=== PATIENT | female | born 1945 | race Caucasian/White ===

== ENCOUNTER → 2019-01-13 13:07 | Outpatient (ROUT) | payer MEDICARE, OTHER, SELFPAY ==
[2019-01-13 13:24] LABS: Crystals Body Fluid - IN-HOUSE NONE Present
== END ==
PROVIDERS: Family Provider Family Medicine; PCP Family Medicine; Visit Provider Orthopaedic Surgery
DX: M17.12 Unilateral primary osteoarthritis, left knee (principal); Z96.652 Presence of left artificial knee joint
CPT/HCPCS: 89060

== ENCOUNTER → 2019-12-14 10:54 | Outpatient (CLI) | payer MEDICARE, OTHER, SELFPAY ==
[2019-12-14 11:34] LABS: Bacteria Urine None Seen; RBC Urine None Seen (0-5/HPF); WBC Urine None Seen (0-5/HPF)
[2019-12-14 12:28] LABS: Add Manual Diff / Slide Review NO; Basophils Absolute Auto 0 /uL (0-100); Basophils Percent Auto 0.6 % (0-2); Eosinophils Absolute Auto 100 /uL (0-450); Eosinophils Percent Auto 1.6 % (2-4); Hemoglobin 14.8 g/dL (12.0-16.0); Lymphocytes Absolute Auto 1400 /uL (1100-4500); Lymphocytes Percent Auto 18.4 % (25-40); Mean Corpuscular HGB Conc 33.6 % (30-36); Mean Corpuscular Hemoglobin 30.1 PG (26-34); Mean Corpuscular Volume 89.7 fL (80-100); Monocytes Absolute Auto 500 /uL (0-900); Monocytes Percent Auto 6.6 % (3-14); Neutrophils Absolute Auto 5600 /uL (1500-7000); Neutrophils Percent Auto 72.8 % (50-75); Platelet Count 221 X10^3/uL (150-400); Red Blood Cell Count 4.91 X10^6/uL (4.0-5.2); Red Cell Distribution Width 13.9 % (11.6-14.8); White Blood Cell Count 7.7 X10^3/uL (4.5-11.0)
[2019-12-14 12:42] LABS: Hemoglobin A1C% w Est Avg Glu 5.3 % (4.0-6.0)
[2019-12-14 12:48] LABS: Appearance Urine UA CLEAR; Bilirubin Urine UA NEGATIVE (NEGATIVE); Color Urine UA YELLOW; Glucose Urine UA NEGATIVE (Negative); Ketones Urine UA NEGATIVE (NEGATIVE); Leukocyte Esterase Urine UA NEGATIVE (NEGATIVE); Nitrite Urine UA NEGATIVE (Negative); Occult Blood Urine UA NEGATIVE (Negative); Protein Urine UA NEGATIVE (Negative); Specific Gravity Urine UA <=1.005 (1.000-1.035); Urobilinogen Urine UA 0.2 E.U./dL (0.2); pH Urine UA 6.5 (4.5-8.0)
[2019-12-14 12:53] LABS: BUN Creatinine Ratio 22.9 (6-22); Blood Urea Nitrogen 16 mg/dL (7-17); Calcium 10.2 mg/dL (8.4-10.2); Carbon Dioxide 32 mmol/L (22-32); Chloride 102 mmol/L (98-107); Estimated Glomerular Filt Rate > 60.0 mL/min (>60); Glucose 102 mg/dL (80-110); HEMOLYSIS < 15 (0-50); Potassium 3.9 mmol/L (3.4-5.1); Sodium 138 mmol/L (137-145)
[2019-12-14 12:54] LABS: Squamous Epithelial Cell Urine 0-1 /HPF (0-5/HPF)
[2019-12-14 12:55] LABS: Amorphous Sediment Urine 1+; Culture Indicated Urine Cult Not Indicated
== END ==
PROVIDERS: Family Provider Family Medicine; PCP Family Medicine; Referring Provider Orthopaedic Surgery; Visit Provider Orthopaedic Surgery
DX: Z01.818 Encounter for other preprocedural examination (principal); Z01.812 Encounter for preprocedural laboratory examination; R73.9 Hyperglycemia, unspecified; N39.0 Urinary tract infection, site not specified
CPT/HCPCS: 36415; 80048; 81001; 83036; 85025; 93005

== ENCOUNTER → 2020-01-06 15:28 | Outpatient (CLI) | payer MEDICARE, OTHER, SELFPAY ==
[2020-01-06 16:41] LABS: COVID19 -Nasal RAPID Negative (Negative)
== END ==
PROVIDERS: Family Provider Family Medicine; PCP Family Medicine; Visit Provider Nurse Practitioner
DX: Z11.59 Encounter for screening for other viral diseases (principal)
CPT/HCPCS: 87635

== ENCOUNTER 2020-01-09 06:20 | Inpatient (IN) | payer MEDICARE, OTHER, SELFPAY ==
[2019-12-19 12:57] VITALS: BMI 26.1
[2020-01-09] VITALS (18 sets, daily range): BP systolic 102–169; BP diastolic 58–86; PULSE 60–90; RESP 14–97; TEMP 35.7–36.9; O2SAT 96–100; BMI 26.2
--- NOTE | 2020-01-09 06:00 | DI.RAD.S_ITS ---
PROCEDURE: XR KNEE LT 1TO2V INDICATIONS: post op films TECHNIQUE: A total of 2 view(s) of the knee acquired. COMPARISON: None. FINDINGS: Bones: Patient is status post knee joint arthroplasty. Hardware components are in expected positions. Visualized bony structures are intact. Soft tissues: Overlying postoperative changes are noted. IMPRESSION: Normal alignment after left total knee arthroplasty with a suprapatellar bursal region surgical drain in expected position. Dictated by: Eran Raphael M.D. on 01/09/2020 at 12:21 Approved by: Eran Raphael M.D. on 01/09/2020 at 12:27
[2020-01-09] MEDS: CELECOXIB 200 MG CAPSULE PO (06:43)
[2020-01-09] MEDS: PREGABALIN 75 MG CAPSULE PO (06:43)
[2020-01-09] MEDS: ACETAMINOPHEN 325 MG TABLET 975 MG PO (06:43)
[2020-01-09] MEDS: LACTATED RINGERS 1,000 ML 42 ML IV ×2 (06:44→09:39)
[2020-01-09] MEDS: VANCOMYCIN 1,000 MG/200 ML PIGGYBACK 200 MG IV (06:50)
--- NOTE | 2020-01-09 07:51 | PM.PREOP ---
Pre-operative Note COVID-19 COVID-19 status: Negative Interval Note History & Physical reviewed/Exam performed by Physician: Yes Changes to H&P: No H&P completed within 30 days and has changed as indicated here:: H&P reviewed and updated. hand written on paper copy in chart and scanned in. lungs clear, cor rrr, left knee TTP lateral, healed incision, mild effusion. allergies nickel.
--- NOTE | 2020-01-09 07:54 | P.OP_ITS ---
Operative Date/Time/Diagnoses Date of procedure: 01/09/20 Time of procedure: 07:54 Pre-op diagnosis: left knee failed medial uni, with lateral OA Post-op diagnosis: same Procedure & Clinicians Procedure: revision left total knee Same procedure as scheduled: Yes Indications: The patient has had progressively worsening left knee pain with radiographic changes consistent with lateral compartment arthritis with a history of prior medial compartment arthroplasty. Non-operative management has failed and the patient has requested revision total knee replacement. The risks, benefits and alternatives to surgery were discussed with the patient prior to proceeding. Risks discussed included, but were not limited to, failure to relieve pain, stiffness, infection, nerve damage, deep venous thrombosis, pulmonary embolism, stroke, coma, heart attack, permanent paralysis and , as well as the potential need for eventual revision of the prosthetic. Surgeon: Arelis Back Nurse Esthetician: Kennedy Pantoja Anesthesia Type: General and Spinal Operative Notes Findings: Minimal polyethylene wear, no significant bone loss, full range of motion, good stability Closure Type: primary Specimen(s): none sent Prosthetic devices, grafts, tissues, transplants, or devices: Back and nephew Journey BCS 2 size 4 femur, size 3 tibia, +12 poly, 10 x 100 mm stem, 35 by 7- 1/2 mm patella Applied: drain(s) Estimated Blood Loss (mL): 250 Blood products transfused: none Tourniquet time (min): 98 Procedure in detail: The patient was seen in the pre-operative area, where the patient identified the left knee as the operative site and this was marked with my initials. The patient received pre-operative antibiotics, and was taken to the operating room and placed on the operative table in the supine position. After satisfactory anesthesia, a time checker out was performed. The left leg was encircled with a tourniquet about the proximal thigh, and the leg was prepared from the toes to the tourniquet with ChloroPrep in the usual fashion and draped through sterile drapes. The leg was elevated and exsanguinated with Eschmark bandage and the tourniquet inflated to [250] mmHg pressure. The knee was approached through an approximately 18 cm incision centered over the patella incorporating the previous incision and carried into the knee through a medial parapatellar arthrotomy. A portion of the lateral meniscus was resected. Soft tissue was carefully mobilized around the patella the patella was measured with a caliper. Bone was resected from the patella and the patellar height was reconstituted with up an appropriate sized patellar component. A cover was then placed on the patella. A small amount of additional lateral meniscus was resected. The distal femur was cut at 5?. A [+2] cut was used. The femoral component was left on and the cut was made on the medial side as a marker. Hand tools were used around the component to loosen it from the cement mantle. A culture was sent of synovium, femoral and from under the tibial component. It looked like an appropriate distal femoral cut and the cut was made without difficulty. The tibial component was removed with a TPS and hand tools. Minimal bone loss was observed. An extramedullary guide was used for the tibial cut. 10 mm was resected off the least affected side (lateral).The tibia was prepared. The rotation was assessed. The patient was placed in extension residual lateral meniscus as well as any residual bone was carefully resected. [No] additional tibia was resected. Hemostasis was achieved especially posteriorly. Additional local was injected into the posterior capsule. The extension gap was assessed and additional releases for gap balancing were performed as necessary. It was checked with the gap quality assurance associate. The rotation was assessed and the missing posterior femoral medial side was carefully assessed. The appropriate size femoral guide was placed on the distal femur and finishing cuts were made. There was no evidence of notching. The anterior, posterior and chamfer cuts were then made. The posterior osteophytes and soft tissues were then removed. The posterior capsule was injected with part of a mixture of 60 ml 0.25% Marcaine mixed with 20 ml Exparel for post operative pain control. The femoral component was placed and the notch was finished. The remainder of this mixture was injec víctor into the capsule and subcutaneous tissues during cement curing.l tibial and femoral components were then placed and the knee placed through a range of motion. Range of motion was [0-130], with good stability throughout the range. The trials were then removed, and the tibia was finished. There was good quality bone in the tibia but because of previous unicompartment replacement it was opted to place 100 mm stem. A Reamer was used in preparation for the stem. The bone was prepared with pulsatile lavage, and dried with a sponge. Cement was applied and the final prosthetics placed. Excess cement was removed during and after cement curing. A brief Betadine soak was performed. After confirming there was no extruded cement posteriorly, the final tibial insert was placed. The knee was copiously irrigated and the tourniquet deflated. Hemostasis was obtained with the Bovie cautery. A drain was placed and brought out superolaterally. The capsule was closed with interrupted nonabsorbable suture. The subcutaneous layer was closed with barbed sutures, and the skin with a running 3-0 V-Lock suture and Surgical glue. An Aquacel Ag dressing was applied and the patient was taken to recovery having tolerated the procedure well. Complications: none Post-operative Condition: stable Disposition: Acute Care Plan for aftercare: The patient will be maintained on a standard total knee replacement protocol with weight bearing as tolerated. The patient will receive aspirin and sequential compression devices for DVT prophylaxis. The patient will be discharged home when safe for the home environment.
[2020-01-09] MEDS: CEFAZOLIN 2 GM/100 ML FROZ.PIGGY IV ×2 (07:55→16:44)
--- NOTE | 2020-01-09 08:30 | SUR.OPER ---
Supine on padded OR bed. Pillow under head, arms secured on padded armboards <90 degree abduction. Safety belt across torso. Non-operative leg secured with tape over blanket over lower leg. Operative leg secured in DeMayo/Jey positioner. Foam padded brace at thigh of operative leg.
[2020-01-09] MEDS: BUPIVACAINE 0.25% W/ EPI (PF) 10 ML VIAL 20 ML INJ (08:42)
[2020-01-09] MEDS: BUPIVACAINE LIPOSOME 266 MG/20 ML VIAL INJ (08:43)
[2020-01-09] MEDS: TRANEXAMIC ACID 1,000 MG VIAL 1000 MG INJ ×2 (08:43→10:08)
[2020-01-09] MEDS: OXYCODONE/ACETAMINOPHEN 5/325 TABLET 1 TAB PO (11:17)
[2020-01-09] MEDS: ONDANSETRON 4 MG/2 ML INJ IV (11:17)
[2020-01-09] MEDS: LACTATED RINGERS 1,000 ML 100 ML IV (12:02)
[2020-01-09] MEDS: IBUPROFEN 400 MG TABLET PO ×3 (12:13→20:52)
[2020-01-09] MEDS: OXYCODONE IR 5 MG TABLET PO ×2 (12:14→21:55)
--- NOTE | 2020-01-09 14:24 | PT.IIE ---
Current Diagnoses Unilateral primary osteoarthritis, left knee (01/09/20) Presence of left artificial knee joint (01/09/20) Surgery Performed Operation Date: 01/09/20 07:45 Actual Procedures p Revison Total Knee Arthroplasty(Left) - Arelis Back MD Surgical History (Last Updated 12/19/19 @ 13:12 by Antonietta Adler, RN) History of surgery Hx of dilation and curettage S/P left unicompartmental knee replacement (12/2014) S/P lumpectomy, left breast Medical History (Last Updated 12/19/19 @ 13:12 by Antonietta Adler, RN) Anxiety Easy bruisability Neuropathy Physical Therapy Inpatient Evaluation/Re-Eval M1 PT/OT-IP Prior Functional Status Start: 01/09/20 15:35 Freq: NEEDED Status: Active Protocol: Document 01/09/20 14:24 AB (Rec: 01/09/20 15:53 AB [id number]) Medical Review Prior Functional Status Medical History Reviewed Yes Communication able to make needs known Mobility and Gait pt stated that she is independent with all mobilities and ambulation without AD but usually uses 2 trekking poles for outdoor walks; stated that L knee tends to give out but has not fallen Social History Household Members spouse Living Arrangements House Number of Floors (Floors) Two Floors Number of Stairs To Enter/Railing? 1 step to enter 15 steps with L rail ascending to bedroom Home Environment High Toilet,Walk in Shower Home Equipment Front Wheel Walker,Straight Cane,Shower Seat with Backrest ,Hand Held Shower,Grab Bars Near Toilet,Grab Bars In Shower Additional Social History Comment pt has a high bed and uses a step stool to get up into the bed has a hurrycane M2 PT-IP Current Condition Start: 01/09/20 15:35 Freq: NEEDED Status: Active Protocol: Document 01/09/20 14:24 AB (Rec: 01/09/20 15:53 AB [email or web address]) Physical Therapy Current Condition Current Condition Evaluation Date 01/09/20 Treatment Diagnosis s/o L TKA revision; difficulty in walking Onset Date 01/09/20 Weight Bearing Status Weight Bearing Status Weight Bear as Tolerated Allowed Weight Bearing Amount (enter % LLE WBAT or #) (%) M3 PT-IP Subjective Start: 01/09/20 15:35 Freq: NEEDED Status: Active Protocol: Document 01/09/20 14:24 AB (Rec: 01/09/20 15:53 AB [email or web address]) Subjective Physical Therapy Visit Type Type Initial Evaluation Visit Start Time 14:24 Visit Stop Time 15:53 Total Visit Minutes 49 Number of STATE COMPTROLLER Visits 0 Physical Therapy Visit Comments Patient Comments pt is agreeable to do PT Therapy Pain Assessment Pain When Pain Assessed At Rest Pain Present Pain Present Pain Reported Location knee Intensity 3 Scale Used increases to 5/10 with mobility Pain Management Techniques Apply Cold,Modification of Treatment,Re-positioning, Timing of Activity with Medications M4 PT-IP Mobility and Gait Start: 01/09/20 15:35 Freq: NEEDED Status: Active Protocol: Document 01/09/20 14:24 AB (Rec: 01/09/20 15:53 [email or web address]) PT-Bed Mobility Assessment Supine to Sit Supine to Sit Standby Assistance Sit to Supine Sit to Supine Standby Assistance Scooting Scooting to Edge of Bed Standby Assistance PT-Transfer Assessment Sit to and From Stand Sit to and from Stand Contact Guard Assistance,Use of Upper Extremities Equipment Transfer Assistive Device Gait Belt,Front Wheeled Walker Orthotic/Prosthetic Devices or Brace: No Comments Mobility Comments completed supine to sit SBA. pt was able to sit on EOB SBA. completed sit to stand CGA. ambulated in room using FWW ~ 35 ft CGA and cues for L quads activation. pt (+) shaking on UE and stated that she gets nervous easily. requested to go back to bed afterwards and completed sit to supine SBA. positioned pt in bed. call light and table placed within reach. Gait Assessment Gait Gait Assistance Required: Contact Guard Assist Distance (Feet) 35 Able to Maintain Weight Bearing Status Yes During Gait Assistive Devices Assistive Device Gait Belt,Front Wheeled Walker Orthotic/Prosthetic Devices or Brace: No Gait Deviations General Gait Pattern Antalgic,Decreased Stride Length,Decreased Feet Clearance,Step-to Gait Factors Limiting Gait Function Factors Limiting Gait Function Decreased Activity Tolerance, Decreased Sensation,Decreased Strength,Pain,Poor Balance, Poor Safety Awareness PT-Balance Assessment Sitting Balance and Reactions Static Sitting Balance Ability Normal Dynamic Sitting Balance Ability Good Standing Balance and Reactions Static Standing Balance Ability Fair Dynamic Standing Balance Ability Fair Device Used FWW M5 PT-IP Objective Assessments Start: 01/09/20 15:35 Freq: NEEDED Status: Active Protocol: Document 01/09/20 14:24 AB (Rec: 01/09/20 15:53 AB [email or web address]) Orientation Orientation/Cognition Level of Alertness Alert Orientation Name,Place,Situation Language Function Ability No Deficits Noted Safety Awareness Decreased Safety Awareness Gross Range of Motion Lower Extremity ROM Impairments L knee flexion: ~ 70 deg Strength Lower Extremity Strength Hip 4/5 Knee 4-/5 Coordination Assessment Gross Coordination Gross Coordination WNL Sensation Assessment Sensation Gross Sensation Right LE Impaired,Left LE Impaired Light Touch Impaired Proprioception (Position) Impaired Sensation Description Tingling,Burning Comments Sensation Comments mid lower legf to B feet: burning sensation with decrease sensation Muscle Tone Muscle Tone WNL Yes M6 PT-IP Treatment Start: 01/09/20 15:35 Freq: NEEDED Status: Active Protocol: Document 01/09/20 14:24 AB (Rec: 01/09/20 15:53 AB [email or web address]) Physical Therapy Treatment Exercises Exercises Heel Slides,Straight Leg Raises Education Education Provided Precautions,Weight Bearing Status,Post-Op Packet,Safety M7 PT-IP Assessment and Plan Start: 01/09/20 15:35 Freq: NEEDED Status: Active Protocol: Document 01/09/20 14:24 AB (Rec: 01/09/20 15:53 AB [email or web address]) PT Summary Assessment and Plan Potential Rehabilitation Potential Good Status of Condition at Evaluation Stable Summary Impairments Pain,ROM,Strength,Balance, Coordination,Sensation,Tone, Cognition,Bed Mobility, Transfers,Gait,Activity Tolerance Assessment Summary pt requiring CGA with mobility and plans to go home with spouse to assist her. will complete caregiver training when appropriate and also stair climbing training. will continue to assess progress for safe d/c plan. pt stated that she is already set up for outpt PT. Goals Bed Mobility Goal Independent Transfer Goal Independent,Front Wheeled Walker Gait Goal Independent,Front Wheel Walker Gait Distance 150 Other Goals up/down 10 steps L rail/ hurrycane SBA Days to Meet Goals 5 Frequency of Treatment Frequency Of Treatment Twice a Day Treatment Plan Physical Therapy Treatment Plan Bed Mobility Training,Transfer Training,Gait Training, Therapeutic Exercise,Balance Retraining,Post Op Education, Discharge Planning,Hot or Cold Pack,Neuromuscular Re-ed, Coordination Retraining,Manual Therapy Recommendations To Nursing Amount of Assist Needed 1 Person Assist Discharge Recommendations PT Discharge Recommendations Home with Assistance, Outpatient PT Transportation Needs at Discharge Private Vehicle
--- NOTE | 2020-01-09 14:39 | PC.ADMIT ---
[id number] Admission Note:Safe hand off from PACU. Patient VSS, lung sounds clear, CMS intact, patient has slight numbness. Patient has pain 2/10, 5mg of Oxycodone seems to be working well for the pain. No complaints of nausea at this time, patient is tolerating PO intake. Aquacell w/ fortunato wrap CDI. Hemovac unclamped and having good output. Bed is low and locked, patient educated about the use of call light, call light is within reach and bed alarm is active. The patient,Bianka Charles,74 y/o, was given written information regarding hospital policies, unit procedures and contact persons. Patient's smoking status: Never smoker. Vital Signs - 8 hr 01/09/20 06:53 01/09/20 10:38 01/09/20 10:44 Temperature 98.5 F 97.3 F L Pulse Rate 90 61 60 Respiratory Rate 16 20 97 H Blood Pressure 166/84 H 134/70 131/74 Pulse Oximetry 100 97 97 01/09/20 10:48 01/09/20 10:53 01/09/20 10:58 Temperature Pulse Rate 71 66 71 Respiratory Rate 20 20 22 Blood Pressure 154/77 H 152/76 H 113/81 Pulse Oximetry 97 97 97 01/09/20 11:03 01/09/20 11:08 01/09/20 11:13 Temperature 97.0 F L Pulse Rate 61 62 62 Respiratory Rate 22 16 18 Blood Pressure 102/81 132/78 140/84 Pulse Oximetry 97 97 97 01/09/20 11:18 01/09/20 11:20 01/09/20 11:30 Temperature 96.3 F L Pulse Rate 62 62 64 Respiratory Rate 18 18 14 Blood Pressure 144/72 H 162/83 H 136/67 Pulse Oximetry 97 96 98 01/09/20 12:00 01/09/20 12:30 01/09/20 13:15 Temperature 97.3 F L 98 F 98 F Pulse Rate 65 66 72 Respiratory Rate 15 15 16 Blood Pressure 169/86 H 169/78 H 128/68 Pulse Oximetry 98 98 97
[2020-01-09] MEDS: ASPIRIN EC 81 MG TABLET PO (20:51)
[2020-01-09] MEDS: DOCUSATE 100 MG CAPSULE PO (20:52)
[2020-01-09] MEDS: ACETAMINOPHEN 325 MG TABLET 650 MG PO (20:52)
[2020-01-10] VITALS: BP 147/81; PULSE 85; RESP 16; TEMP 36.4; O2SAT 96
[2020-01-10] MEDS: CEFAZOLIN 2 GM/100 ML FROZ.PIGGY IV
[2020-01-10] MEDS: IBUPROFEN 400 MG TABLET PO ×4 (00:01→12:06)
[2020-01-10] MEDS: OXYCODONE IR 5 MG TABLET PO ×3 (02:04→12:07)
[2020-01-10 04:58] VITALS: BP 107/81; PULSE 94; RESP 18; TEMP 36.3; O2SAT 97
[2020-01-10 06:37] LABS: Hematocrit 36.6 % (36-46); Hemoglobin 11.9 g/dL (12.0-16.0)
--- NOTE | 2020-01-10 07:42 | PM.PN.1 ---
Subjective Subjective Date Patient Seen: 01/10/20 Time Patient Seen: 07:42 Interval history: She notes she is doing well she has minimal pain. She has been out of bed to the bathroom and has no nausea. Exam Vital Signs (past 8 hours): - 01/10/20 00:00 01/10/20 04:58 Temperature 97.6 F 97.4 F L Pulse Rate 85 94 H Respiratory Rate 16 18 Blood Pressure 147/81 H 107/81 Pulse Oximetry 96 97 Oxygen Delivery Method Room Air Oxygen Flow Rate 0 Narrative Exam Narrative: Dressings dry and intact, she is neurologically intact distally she is able to do straight leg raise her calf to soft Objective Labs Result Diagrams: 01/10/20 06:14 Labs: Laboratory Results - last 24 hr 01/10/20 06:14 Hgb 11.9 L Hct 36.6 PFSH Medical History (Updated 12/19/19 @ 13:12 by Antonietta Adler RN) Anxiety Easy bruisability Neuropathy Surgical History (Updated 12/19/19 @ 13:12 by Antonietta Adler RN) History of surgery Hx of dilation and curettage S/P left unicompartmental knee replacement (12/2014) S/P lumpectomy, left breast Social History household members: spouse Smoking Status: Never smoker alcohol intake: current Assessment & Plan Assessment & Plan narrative: Doing well status post revision left total knee arthroplasty plan out of bed with physical therapy remove her drain and it is okay to discharge her to home after a session of therapy. Quality VTE Deep Vein Thrombosis/Pulmonary Embolism Present on Admission: No
[2020-01-10 08:45] VITALS: BP 146/67; PULSE 73; RESP 16; TEMP 36.6; O2SAT 97
[2020-01-10] MEDS: ASPIRIN EC 81 MG TABLET PO (09:10)
[2020-01-10] MEDS: DOCUSATE 100 MG CAPSULE PO (09:10)
[2020-01-10] MEDS: ACETAMINOPHEN 325 MG TABLET 650 MG PO (09:12)
--- NOTE | 2020-01-10 09:27 | PT.IPTN ---
Current Diagnoses Unilateral primary osteoarthritis, left knee (01/09/20) Presence of left artificial knee joint (01/09/20) Surgery Performed Operation Date: 01/09/20 07:45 Actual Procedures p Revison Total Knee Arthroplasty(Left) - Arelis Back MD Physical Therapy Treatment Note M2 PT-IP Current Condition Start: 01/09/20 15:35 Freq: NEEDED Status: Active Protocol: Document 01/09/20 14:24 AB (Rec: 01/09/20 15:53 AB [email or web address]) Physical Therapy Current Condition Current Condition Evaluation Date 01/09/20 Treatment Diagnosis s/o L TKA revision; difficulty in walking Onset Date 01/09/20 Weight Bearing Status Weight Bearing Status Weight Bear as Tolerated Allowed Weight Bearing Amount (enter % LLE WBAT or #) (%) M3 PT-IP Subjective Start: 01/09/20 15:35 Freq: NEEDED Status: Active Protocol: Document 01/10/20 09:27 AB (Rec: 01/10/20 10:40 AB [email or web address]) Subjective Physical Therapy Visit Type Type Treatment Note Visit Start Time 09:27 Visit Stop Time 09:50 Total Visit Minutes 23 Number of BURSAR Visits 0 Physical Therapy Visit Comments Patient Comments pt is agreeable to do PT Therapy Pain Assessment Pain When Pain Assessed At Rest Pain Present Pain Present Pain Reported Location knee Intensity 4 Scale Used Numeric (0 - 10) Pain Management Techniques Apply Cold,Modification of Treatment,Re-positioning, Timing of Activity with Medications M4 PT-IP Mobility and Gait Start: 01/09/20 15:35 Freq: NEEDED Status: Active Protocol: Document 01/10/20 09:27 AB (Rec: 01/10/20 10:40 AB [email or web address]) PT-Bed Mobility Assessment Supine to Sit Supine to Sit Standby Assistance Sit to Supine Sit to Supine Standby Assistance PT-Transfer Assessment Sit to and From Stand Sit to and from Stand Standby Assistance Equipment Transfer Assistive Device Gait Belt,Front Wheeled Walker Orthotic/Prosthetic Devices or Brace: No Transfers Transfer Destination Toilet Transfer Technique ambulated using FWW Transfer Ability Level of Assist Standby Assistance Comments Mobility Comments completed supine to sit SBA. requested to use the toilet and ambulated to the toilet SBA using FWW. pt was able to manage hygiene care and brief management. ambualted out of the toilet using FWW to the sink SBA and was able to maintain standing using FWW for support SBA while completing handwashing. pt ambulated towards the stairs ~ 75 ft using FWW SBA. completed up/down platform step SBA. educated spouse on how to assist pt and to stabilize FWW. pt completed up/down steps holding L rail with B hands SBA. completed again with spouse assisting and spouse was able to cue pt when needed. pt ambulated back to her room SBA using FWW . requested to go back to bed and completed sit to supine SBA. positioned in bed. ice pack provided. call light and table placed within reach. pt and spouse without any other concerns. Gait Assessment Gait Gait Assistance Required: Standby Assistance Distance (Feet) 75 Able to Maintain Weight Bearing Status Yes During Gait Assistive Devices Assistive Device Gait Belt,Front Wheeled Walker Orthotic/Prosthetic Devices or Brace: No Gait Deviations General Gait Pattern Antalgic,Decreased Stride Length,Decreased Feet Clearance Factors Limiting Gait Function Factors Limiting Gait Function Decreased Activity Tolerance, Decreased Strength,Limited Range of Motion,Pain,Poor Balance,Poor Safety Awareness Comments Gait Comments pls refer to mobility section for details Stair Climbing Assessment Evaluation Level of Assist On Stairs Standby Assistance Devices Stair Climbing Assistive Devices Left Railing Technique/Endurance Stair Climbing Technique Step to Step Number of Steps Climbed 3 Stair Climbing Set # Repetitions (reps) 2 M5 PT-IP Objective Assessments Start: 01/09/20 15:35 Freq: NEEDED Status: Active Protocol: Document 01/09/20 14:24 AB (Rec: 01/09/20 15:53 AB [email or web address]) Orientation Orientation/Cognition Level of Alertness Alert Orientation Name,Place,Situation Language Function Ability No Deficits Noted Safety Awareness Decreased Safety Awareness Gross Range of Motion Lower Extremity ROM Impairments L knee flexion: ~ 70 deg Strength Lower Extremity Strength Hip 4/5 Knee 4-/5 Coordination Assessment Gross Coordination Gross Coordination WNL Sensation Assessment Sensation Gross Sensation Right LE Impaired,Left LE Impaired Light Touch Impaired Proprioception (Position) Impaired Sensation Description Tingling,Burning Comments Sensation Comments mid lower legf to B feet: burning sensation with decrease sensation Muscle Tone Muscle Tone WNL Yes M6 PT-IP Treatment Start: 01/09/20 15:35 Freq: NEEDED Status: Active Protocol: Document 01/10/20 09:27 AB (Rec: 01/10/20 10:40 AB [email or web address]) Physical Therapy Treatment Education Education Provided Safety M7 PT-IP Assessment and Plan Start: 01/09/20 15:35 Freq: NEEDED Status: Active Protocol: Document 01/10/20 09:27 AB (Rec: 01/10/20 10:40 AB [email or web address]) PT Summary Assessment and Plan Potential Rehabilitation Potential Good Summary Impairments Pain,ROM,Strength,Balance, Coordination,Sensation,Tone, Cognition,Bed Mobility, Transfers,Gait,Activity Tolerance Progress Towards Goals Progressing Toward Goals Assessment Summary pt is doing well with mobility and requires SBA. pt plans to go home and spouse to assist her at home. pt is also set up for outpt PT. pt may go home when medically stable. Goals Bed Mobility Goal Independent Transfer Goal Independent,Front Wheeled Walker Gait Goal Independent,Front Wheel Walker Gait Distance 150 Other Goals up/down 10 steps L rail SBA Days to Meet Goals 5 Frequency of Treatment Frequency Of Treatment Twice a Day Treatment Plan Physical Therapy Treatment Plan Bed Mobility Training,Transfer Training,Gait Training, Therapeutic Exercise,Balance Retraining,Post Op Education, Discharge Planning,Hot or Cold Pack,Neuromuscular Re-ed, Coordination Retraining,Manual Therapy Recommendations To Nursing Amount of Assist Needed Standby Assistance Discharge Recommendations PT Discharge Recommendations Home with Assistance, Outpatient PT Transportation Needs at Discharge Private Vehicle
--- NOTE | 2020-01-10 11:38 | PC.NURSE ---
Patient worked with physical therapy well, she will be discharged after lunch. She has an aquacel on her l.knee and her fortunato wrap has been taken off. Hemovac d/cd and patient had 75cc of dark blood out. She is a one person assist with fww when moving. CMS wnl and ppx2.
== END 2020-01-10 12:47 | disposition home or self-care (01) | DRG 468 ==
PROVIDERS: Admitting Provider Orthopaedic Surgery; Family Provider Family Medicine; PCP Family Medicine; Referring Provider Family Medicine; Visit Provider Orthopaedic Surgery
PROC: 0SRD0J9 Replacement of Left Knee Joint with Synthetic Substitute, Cemented, Open Approach (ICD-10-PCS; principal; 2020-01-09 07:45)
DX: T84.093A Other mechanical complication of internal left knee prosthesis, initial encounter (principal); M17.12 Unilateral primary osteoarthritis, left knee; T84.84XA Pain due to internal orthopedic prosthetic devices, implants and grafts, initial encounter; Z11.59 Encounter for screening for other viral diseases
CPT/HCPCS: 36415; 73560; 85014; 85018; 87070; 87075; 87077; 87176; 87186; 87205; 87635; 97116; 97161; 97530; C1776; C9290; J0690; J1100; J2250; J2405; J2704; J3010

== ENCOUNTER → 2020-04-18 11:38 | Outpatient (CLI) | payer MEDICARE, OTHER, SELFPAY ==
[2020-01-09 11:41] VITALS: BMI 26.2
--- NOTE | 2020-04-18 | DI.US.S_ITS ---
PROCEDURE: US PERIPH VENOUS LOW EXTREM LT INDICATIONS: CALF SWELLING TECHNIQUE: Real-time imaging, as well as color and pulse Doppler interrogation, were performed of the lower extremity deep veins from the inguinal ligament to the popliteal fossa. COMPARISON: None. FINDINGS: The common femoral, femoral and popliteal veins are normally compressible, and free of intraluminal thrombus. Color and pulse Doppler demonstrate normal phasic intraluminal flow. There is normal augmentation response to distal compression maneuver. Two cysts are seen in the region of the left popliteal fossa measuring 4.7 x 1.7 x 1.1 cm and 2.8 x 2.1 x 2.4 cm that most likely represent Matt's cysts. There is mild soft tissue edema in the calf. IMPRESSION: 1. No sonographic evidence of deep venous thrombosis in the left lower extremity. 2. Two cysts are seen in the region of the left popliteal fossa that most likely represent Matt's cysts. Further evaluation may be obtained with knee MRI if clinically indicated. Dictated by: Allan Priest M.D. on 04/18/2020 at 13:04 Approved by: Allan Priest M.D. on 04/18/2020 at 13:05
== END ==
PROVIDERS: Family Provider Family Medicine; PCP Family Medicine; Referring Provider Family Medicine; Visit Provider Physician Assistant Surgical
DX: M79.89 Other specified soft tissue disorders (principal); M71.22 Synovial cyst of popliteal space [Baker], left knee
CPT/HCPCS: 93971

== ENCOUNTER → 2020-06-01 11:04 | Outpatient (CLI) | payer MEDICARE, OTHER, SELFPAY ==
[2020-01-09 11:41] VITALS: BMI 26.2
[2020-06-01 13:20] LABS: COVID19 -Nasal RAPID Negative (Negative)
== END ==
PROVIDERS: Family Provider Family Medicine; PCP Family Medicine; Visit Provider Physician Assistant
DX: Z20.822 Contact with and (suspected) exposure to COVID-19 (principal)
CPT/HCPCS: 87635; C9803

== ENCOUNTER 2020-06-04 06:50 | Day surgery (SDC) | payer MEDICARE, OTHER, SELFPAY ==
[2020-01-09 11:41] VITALS: BMI 26.2
[2020-06-04] MEDS: CATARACT EYE COMPOUND (10 DROPS/SYRINGE) 3 DROPS EYE-OP (07:12)
[2020-06-04] MEDS: PROPARACAINE 0.5% OPHTH SOL 2 DROPS EYE-OP (07:12)
[2020-06-04 07:17] VITALS: BP 120/86; PULSE 90; RESP 16; TEMP 37; O2SAT 99; BMI 25.9
--- NOTE | 2020-06-04 08:04 | PM.PREOP ---
Pre-operative Note Interval Note History & Physical reviewed/Exam performed by Physician: Yes Changes to H&P: No
--- NOTE | 2020-06-04 08:04 | PM.OP.1 ---
Operative Date/Time/Diagnoses Pre-op diagnosis: Nuclear cataract right eye Procedure & Clinicians Procedure: Cataract Surgery Same procedure as scheduled: Yes Surgeon: Yung Wilhelm Anesthesia Type: MAC +/- and Sedation Operative Notes Procedure in detail: Patient brought to the operating suite. Tetracaine drops placed in the right eye. Patient was prepped and draped in sterile manner. Wire lid speculum was placed in the eye. Betadine drops were placed on the eye. This was irrigated. Lidocaine jelly was placed on the eye. A paracentesis port was created with a side-port blade. 0.1 mL 1% preservative free lidocaine was injected into the anterior chamber. The anterior chamber was deepened with viscoelastic. 2.6 mm keratome was used to create a temporal clear corneal incision. Cystotome and Utrata forceps were used to create continuous tear capsulorrhexis. Balanced salt solution was used to hydro dissect the nucleus. The phacoemulsification handpiece was inserted and the nucleus was removed using the stop and chop technique. The irrigation aspiration handpiece was inserted and the remaining cortex was removed. Anterior chamber was deepened with viscoelastic. An Carrillo ZCB00 intraocular lens with a power of 22.5 was injected into the capsular bag. Irrigation aspiration handpiece was inserted and the remaining viscoelastic was removed. Incision was hydrated with balanced salt solution and found to be leak free with pressure with Weck-Eun sponges. 0.1 mL Vigamox injected anterior chamber. 0.3 mL Kenalog 10 mg was injected subconjunctivally. Lid speculum was removed. The patient left the operating room in excellent condition. Complications: none Post-operative Condition: stable Disposition: same day surgery
[2020-06-04] MEDS: PHENYLEPHRINE/LIDOCAINE VIAL (OR) 0.2 ML EYE-OP (08:19)
[2020-06-04] MEDS: MOXIFLOXACIN INJ 4 MG/0.8 ML VIAL 0.5 MG EYE-OP (08:19)
[2020-06-04] MEDS: TRIAMCINOLONE 50 MG/5 ML VIAL INJ (08:19)
[2020-06-04] MEDS: LIDOCAINE 2% (GLYDO) 6 ML GEL TOP (08:20)
[2020-06-04] MEDS: BALANCED SALT IRRIG SOLN NO.2 500 ML, EPINEPHrine 1 MG IRR (08:20)
[2020-06-04] MEDS: CHONDROIDTIN/SOD HYALURONATE 1.05 ML SYRINGE INTRAOCULA (08:20)
[2020-06-04] MEDS: TETRACAINE 0.5% OPHTH DROPS 4 ML 2 DROPS EYE-OP (08:20)
[2020-06-04 08:40] VITALS: BP 122/76; PULSE 88; RESP 16; TEMP 36.9; O2SAT 99
== END 2020-06-04 09:45 | disposition home or self-care (01) ==
PROVIDERS: Family Provider Family Medicine; PCP Family Medicine; Referring Provider Family Medicine; Visit Provider Ophthalmology
PROC: (CPT 66984; principal; 2020-06-04 08:15)
DX: H25.11 Age-related nuclear cataract, right eye (principal); F41.9 Anxiety disorder, unspecified; G62.9 Polyneuropathy, unspecified
CPT/HCPCS: 66984; J0171; J2250; J3010; J3301

== ENCOUNTER → 2020-06-15 10:04 | Outpatient (CLI) | payer MEDICARE, OTHER, SELFPAY ==
[2020-01-09 11:41] VITALS: BMI 26.2
[2020-06-15 12:31] LABS: COVID19 -Nasal RAPID Negative (Negative)
== END ==
PROVIDERS: Family Provider Family Medicine; PCP Family Medicine; Referring Provider Student in an Organized Health Care Education/Training Program; Visit Provider Student in an Organized Health Care Education/Training Program
DX: Z01.812 Encounter for preprocedural laboratory examination (principal); Z20.822 Contact with and (suspected) exposure to COVID-19
CPT/HCPCS: 87635; C9803

== ENCOUNTER 2020-06-18 09:14 | Day surgery (SDC) | payer MEDICARE, OTHER, SELFPAY ==
[2020-01-09 11:41] VITALS: BMI 26.2
[2020-06-18 10:17] VITALS: BP 170/84; PULSE 83; RESP 15; TEMP 36.2; O2SAT 100; BMI 26.2
[2020-06-18] MEDS: PROPARACAINE 0.5% OPHTH SOL 2 DROPS EYE-OP (10:26)
[2020-06-18] MEDS: CATARACT EYE COMPOUND (10 DROPS/SYRINGE) 3 DROPS EYE-OP (10:26)
--- NOTE | 2020-06-18 11:01 | P.OP_ITS ---
Operative Date/Time/Diagnoses Pre-op diagnosis: Nuclear Cataract Left eye Post-op diagnosis: same Procedure & Clinicians Same procedure as scheduled: Yes Surgeon: Yung Wilhelm Anesthesia Type: MAC +/- and Sedation Operative Notes Procedure in detail: Patient brought to the operating suite. Tetracaine drops placed in the left eye. Patient was prepped and draped in sterile manner. Wire lid speculum was placed in the eye. Betadine drops were placed on the eye. This was irrigated. Lidocaine jelly was placed on the eye. A paracentesis port was created with a side-port blade. 0.1 mL 1% preservative free lidocaine was injected into the anterior chamber. The anterior chamber was deepened with viscoelastic. 2.6 mm keratome was used to create a temporal clear corneal incision. Cystotome and Utrata forceps were used to create continuous tear capsulorrhexis. Balanced salt solution was used to hydro dissect the nucleus. The phacoemulsification handpiece was inserted and the nucleus was removed using the stop and chop technique. The irrigation aspiration handpiece was inserted and the remaining cortex was removed. Anterior chamber was deepened with viscoe lastic. An Carrillo ZCB00 intraocular lens with a power of 22.0 was injected into the capsular bag. Irrigation aspiration handpiece was inserted and the remaining viscoelastic was removed. Incision was hydrated with balanced salt solution and found to be leak free with pressure with Weck-Eun sponges. 0.1 mL Vigamox injected anterior chamber. 0.3 mL Kenalog 10 mg was injected subconjunctivally. Lid speculum was removed. The patient left the operating room in excellent condition. Complications: none Post-operative Condition: stable Disposition: same day surgery
--- NOTE | 2020-06-18 11:01 | PM.PREOP ---
Pre-operative Note Interval Note History & Physical reviewed/Exam performed by Physician: Yes Changes to H&P: No
[2020-06-18] MEDS: PHENYLEPHRINE/LIDOCAINE VIAL (OR) 0.2 ML EYE-OP (11:47)
[2020-06-18] MEDS: TRIAMCINOLONE 50 MG/5 ML VIAL INJ (11:48)
[2020-06-18] MEDS: CHONDROIDTIN/SOD HYALURONATE 1.05 ML SYRINGE INTRAOCULA (11:48)
[2020-06-18] MEDS: MOXIFLOXACIN INJ 4 MG/0.8 ML VIAL 0.5 MG EYE-OP (11:48)
[2020-06-18] MEDS: LIDOCAINE 2% (GLYDO) 6 ML GEL TOP (11:48)
[2020-06-18] MEDS: BALANCED SALT IRRIG SOLN NO.2 500 ML, EPINEPHrine 1 MG IRR (11:49)
[2020-06-18] MEDS: TETRACAINE 0.5% OPHTH DROPS 4 ML 2 DROPS EYE-OP (11:49)
[2020-06-18 12:00] VITALS: BP 142/77; PULSE 66; RESP 14; TEMP 36.8; O2SAT 98
== END 2020-06-18 12:13 | disposition home or self-care (01) ==
PROVIDERS: Family Provider Family Medicine; PCP Family Medicine; Referring Provider Ophthalmology; Visit Provider Ophthalmology
PROC: (CPT 66984; principal; 2020-06-18 11:15)
DX: H25.12 Age-related nuclear cataract, left eye (principal); F41.9 Anxiety disorder, unspecified; G62.9 Polyneuropathy, unspecified
CPT/HCPCS: 66984; J0171; J2250; J3010; J3301

== ENCOUNTER → 2022-05-12 10:54 | Outpatient (CLI) | payer MEDICARE, OTHER, SELFPAY ==
[2020-01-09 11:41] VITALS: BMI 26.2
--- NOTE | 2022-05-12 | DI.RAD.S_ITS ---
PROCEDURE: XR ABDOMEN 3V INDICATIONS: left upper quadrant pain, diarrhea TECHNIQUE: One view chest and two views of the abdomen were acquired. COMPARISON: None. FINDINGS: Surgical changes and devices: None. Chest: Lungs are clear. Heart size is normal. No pleural effusions. No pneumoperitoneum. Abdomen: Nonspecific bowel-gas pattern without signs of obstruction. No significant colonic stool is seen. No suspicious calcifications. Visualized solid organ contours appear normal. Bones: No suspicious bony lesions. Mild degenerative changes are seen in the spine. IMPRESSION: Nonspecific nonobstructive bowel gas pattern. No pneumoperitoneum. No acute cardiopulmonary abnormality. Approved by: Allan Priest M.D. on 05/12/2022 at 15:42
== END ==
PROVIDERS: Family Provider Family Medicine; PCP Physician Assistant; Referring Provider Internal Medicine Gastroenterology; Visit Provider Internal Medicine Gastroenterology
DX: R10.12 Left upper quadrant pain (principal); R19.7 Diarrhea, unspecified; R19.4 Change in bowel habit
CPT/HCPCS: 74021

== ENCOUNTER → 2022-05-12 11:12 | Outpatient (CLI) | payer MEDICARE, OTHER, SELFPAY ==
[2020-01-09 11:41] VITALS: BMI 26.2
[2022-05-12 13:07] LABS: Thyroid Stimulating Hormone 2.19 uIU/mL (0.47-4.68)
== END ==
PROVIDERS: Family Provider Family Medicine; PCP Physician Assistant; Referring Provider Internal Medicine Gastroenterology; Visit Provider Internal Medicine Gastroenterology
DX: R19.7 Diarrhea, unspecified (principal); R10.12 Left upper quadrant pain; R19.4 Change in bowel habit
CPT/HCPCS: 36415; 74021; 84443

== ENCOUNTER 2022-07-13 08:49 | Day surgery (SDC) | payer MEDICARE, OTHER, SELFPAY ==
[2020-01-09 11:41] VITALS: BMI 26.2
--- NOTE | 2022-07-13 | PATH_ITS ---
[facility] Accession Number: [id number] No. of containers..01 Tissue . 01 Material submitted: . colon - RANDOM COLON . 01 Diagnosis: Random Colon, Biopsy: Colonic mucosa with no diagnostic abnormality. Negative for active, chronic, and microscopic colitis. Negative for dysplasia and malignancy. . MRV 07/16/2022 1316 Local . 01 Electronically signed: . Tarik Del Cid MD, PhD, Pathologist NPI- [id number] . 01 Gross description: . RANDOM COLON : Received in formalin are 3 fragment(s) of hensley, soft tissue measuring 0.1 x 0.1 x 0.1 cm to 0.2 x 0.2 x 0.1 cm submitted entirely in 1 cassette(s) /INDIA 07/15/2022 0104 Local . 01 Pathologist provided ICD-10: R10.13, R19.7 . 01 CPT . 607267 Specimen Comment: A courtesy copy of this report has been sent to [phone] Performed at: 01 [facility] [address] [place] [address], [place], [place] [id number] MD Dangelo Duncan MD Phone: [phone]
--- NOTE | 2022-07-13 09:06 | PM.HP.1 ---
History of Present Illness History of Present Illness Date Patient Seen: 07/13/22 Time Patient Seen: 09:06 Chief complaint: SDC Narrative: I reviewed my note. No significant changes. Still having quite a bit of bloating despite bowel prep. Hemorrhoids came out with the bowel prep. PFSH Medical History Anxiety Easy bruisability Neuropathy Surgical History History of surgery Hx of dilation and curettage S/P left unicompartmental knee replacement (12/2014) S/P lumpectomy, left breast Social History household members: spouse Smoking Status: Never smoker alcohol intake: current Meds Home Medications and Allergies Home Medications Medication Instructions Recorded Confirmed Type calcitonin (salmon) 200 1 spray intranasal (ALT) DAILY 12/19/19 06/18/20 History unit/actuation nasal spray gabapentin 100 mg capsule 100 mg PO BEDTIME 06/04/20 06/18/20 History ibuprofen 400 mg tablet 400 mg PO Q4HR PRN Pain (Scale 06/04/20 06/18/20 History Score 1-3) Allergies Allergy/AdvReac Type Severity Reaction Status Date / Time metronidazole Allergy Severe Ants Verified 07/13/22 09:06 crawling all over me nickel Allergy Severe Turns skin Verified 07/13/22 09:06 black pneumococcal vaccine Allergy Severe Swelling, Verified 07/13/22 09:06 redness from injection site and over arm adhesive tape AdvReac Mild Welts, Verified 07/13/22 09:06 tears skin Exam Const General: cooperative HENMT Head: normal to inspection Eyes General: appearance normal, both eyes and all related structures Neck Neck: normal visual inspection Chest Chest: normal inspection of the chest Resp Effort & Inspection: normal respiratory effort Cardio Rate: regular rate GI Inspection: normal to inspection Skin General: no rashes or lesions noted Neuro General: patient alert and patient awake Extrem General: normal to inspection and no pedal edema Psych Appearance: grossly normal Assessment & Plan Assessment & Plan narrative: 76-year-old female with a change in bowel habit. Colonoscopy is pursued today
--- NOTE | 2022-07-13 09:07 | PM.PREOP ---
Pre-operative Note Interval Note History & Physical reviewed/Exam performed by Physician: Yes Changes to H&P: No ASA Class (for procedural sedation): II
[2022-07-13 09:11] VITALS: BP 137/76; PULSE 93; RESP 19; TEMP 36.5; O2SAT 99; BMI 23.3
[2022-07-13] MEDS: LACTATED RINGERS 1,000 ML 42 ML IV (09:31)
--- NOTE | 2022-07-13 10:24 | P.OP.COLON_ITS ---
Operative Date/Time/Diagnoses Date of procedure: 07/13/22 Time of procedure: 10:24 Pre-op diagnosis: Change in bowel habits bloating Post-op diagnosis: same Procedure & Clinicians Study performed: Colonoscopy with biopsies Same procedure as scheduled: Yes Indications: Change in bowel habit bloating Surgeon: Hansel Pelayo Procedure Notes SCOAP/Timeout: Done Procedure in detail: After the risks and benefits were explained, written and verbal informed consent was obtained. The patient was brought into the procedure room and placed into the left lateral decubitus position. Please see anesthesia notes for sedation d etails. Digital rectal examination was accomplished. The scope was introduced into the patient and advanced under direct visualization to the cecum as identified by the appendiceal orifice and ileocecal valve. The scope was slowly withdrawn to carefully examine the mucosa for any defects or lesions. Comprehensive imaging was accomplished throughout the rectum including the dentate line. The colon was decompressed, the scope was then removed from the patient who tolerated the procedure well. Pediatric colonoscope Bowel prep adequate Scope withdrawal time: 8 minutes Sedation minutes: 27 Complications: none Impression: There were some diverticula in the left colon. Navigation was very difficult. We changed positions into the supine and right lateral position. Ultimately when we brought the patient back to left lateral decubitus position and removed the stiffener, we were able to finally advance to cecum. Terminal ileum was inspected and appeared normal. Random colon biopsies were taken for exclusion of microscopic colitis. No mass lesions no obstructing pathology. No procto colitis. Grade 2-3 hemorrhoids were noted. Endoscopic diagnosis 1. Twisty colon 2. Diverticulosis 3. Grade 2-3 hemorrhoids Post-procedure Plan for aftercare: 1. Await histopathology. 2. Continue aggressive bowel regimen with daily to twice daily fiber supplementation. Disposition: PACU
[2022-07-13 10:26] VITALS: BP 115/65; PULSE 67; RESP 14; TEMP 36.1; O2SAT 100
[2022-07-13 10:31] VITALS: BP 113/70; PULSE 67; RESP 17; O2SAT 100
[2022-07-13 10:36] VITALS: BP 121/72; PULSE 78; RESP 15; O2SAT 100
[2022-07-13 10:40] VITALS: BP 122/68; PULSE 66; TEMP 36.4; O2SAT 100
--- NOTE | 2022-07-13 10:44 | SUR.PHASEII ---
DC home in with volunteer to . all belongings with patient. denies pain and n/v.
== END 2022-07-13 11:10 | disposition home or self-care (01) ==
PROVIDERS: Family Provider Family Medicine; PCP Physician Assistant; Referring Provider Internal Medicine Gastroenterology; Visit Provider Internal Medicine Gastroenterology
PROC: 0DJD8ZZ Inspection of Lower Intestinal Tract, Via Natural or Artificial Opening Endoscopic (ICD-10-PCS; CPT 45378; principal; 2022-07-13 10:00)
DX: R19.4 Change in bowel habit (principal); R14.0 Abdominal distension (gaseous); K57.30 Diverticulosis of large intestine without perforation or abscess without bleeding; K64.1 Second degree hemorrhoids
CPT/HCPCS: 45380; J2704

== ENCOUNTER → 2023-01-26 10:16 | Outpatient (CLI) | payer MEDICARE, OTHER, SELFPAY ==
[2020-01-09 11:41] VITALS: BMI 26.2
[2023-01-26 11:12] LABS: Hemoglobin A1C% w Est Avg Glu 5.1 % (4.0-6.0)
[2023-01-26 11:15] LABS: Add Manual Diff / Slide Review NO; Basophils Absolute Auto 0 /uL (0-100); Basophils Percent Auto 0.6 % (0-2); Eosinophils Absolute Auto 100 /uL (0-450); Eosinophils Percent Auto 1.2 % (2-4); Hematocrit 41.7 % (36-46); Hemoglobin 14.1 g/dL (12.0-16.0); Lymphocytes Absolute Auto 1200 /uL (1100-4500); Lymphocytes Percent Auto 15.9 % (25-40); Mean Corpuscular HGB Conc 33.8 % (30-36); Mean Corpuscular Hemoglobin 29.7 PG (26-34); Monocytes Absolute Auto 600 /uL (0-900); Monocytes Percent Auto 7.4 % (3-14); Neutrophils Absolute Auto 5900 /uL (1500-7000); Neutrophils Percent Auto 74.9 % (50-75); Platelet Count 252 X10^3/uL (150-400); Red Blood Cell Count 4.74 X10^6/uL (4.0-5.2); Red Cell Distribution Width 13.8 % (11.6-14.8); White Blood Cell Count 7.8 X10^3/uL (4.5-11.0)
[2023-01-26 11:21] LABS: BUN Creatinine Ratio 31.4 (6-22); Blood Urea Nitrogen 22 mg/dL (7-17); Calcium 10.3 mg/dL (8.4-10.2); Carbon Dioxide 28 mmol/L (22-32); Chloride 104 mmol/L (98-107); Estimated Glomerular Filt Rate > 60 mL/min (>60); Glucose 93 mg/dL (80-110); HEMOLYSIS 19 (0-50); Potassium 4.7 mmol/L (3.4-5.1); Sodium 138 mmol/L (137-145)
[2023-01-26 11:40] LABS: Appearance Urine UA CLEAR; Bilirubin Urine UA NEGATIVE (NEGATIVE); Color Urine UA YELLOW; Glucose Urine UA NEGATIVE (Negative); Ketones Urine UA NEGATIVE (NEGATIVE); Leukocyte Esterase Urine UA NEGATIVE (NEGATIVE); Nitrite Urine UA NEGATIVE (Negative); Occult Blood Urine UA NEGATIVE (Negative); Protein Urine UA NEGATIVE (Negative); Specific Gravity Urine UA 1.025 (1.000-1.035); Urobilinogen Urine UA 0.2 E.U./dL (0.2)
[2023-01-26 11:49] LABS: Bacteria Urine None Seen; Culture Indicated Urine Cult Not Indicated; Mucus Urine 1+ (Negative); RBC Urine None Seen (0-5/HPF); Squamous Epithelial Cell Urine 5-10 /HPF (0-5/HPF); WBC Urine None Seen (0-5/HPF)
== END ==
PROVIDERS: Family Provider Family Medicine; PCP Physician Assistant; Referring Provider Orthopaedic Surgery; Visit Provider Orthopaedic Surgery
DX: Z01.818 Encounter for other preprocedural examination (principal); R73.9 Hyperglycemia, unspecified; Z01.812 Encounter for preprocedural laboratory examination; N39.0 Urinary tract infection, site not specified
CPT/HCPCS: 36415; 80048; 81001; 83036; 85025; 93005; 93010

== ENCOUNTER 2023-03-09 06:18 | Day surgery (SDC) | payer MEDICARE, OTHER, SELFPAY ==
[2020-01-09 11:41] VITALS: BMI 26.2
[2023-02-15 09:31] VITALS: BMI 24.1
[2023-03-09] VITALS (11 sets, daily range): BP systolic 123–157; BP diastolic 59–82; PULSE 70–87; RESP 16–21; TEMP 36.3–36.7; O2SAT 91–99; BMI 24.1
[2023-03-09] MEDS: ACETAMINOPHEN 325 MG TABLET 975 MG PO (06:57)
[2023-03-09] MEDS: VANCOMYCIN 1,000 MG/200 ML PIGGYBACK 200 MG IV (06:57)
[2023-03-09] MEDS: LACTATED RINGERS 1,000 ML 42 ML IV (06:58)
--- NOTE | 2023-03-09 07:52 | PM.PREOP ---
Pre-operative Note Interval Note History & Physical reviewed/Exam performed by Physician: Yes Changes to H&P: No
--- NOTE | 2023-03-09 07:53 | PM.OP.1 ---
Operative Date/Time/Diagnoses Date of procedure: 03/09/23 Time of procedure: 07:53 Pre-op diagnosis: right knee OA Post-op diagnosis: same Procedure & Clinicians Procedure: Right total knee arthroplasty, Cori robotic assisted Same procedure as scheduled: Yes Indications: The patient has had progressively worsening right knee pain with radiographic changes consistent with arthritis. Non-operative management has failed and the patient has requested total knee replacement. The risks, benefits and alternatives to surgery were discussed with the patient prior to proceeding. Risks discussed included, but were not limited to, failure to relieve pain, stiffness, infection, nerve damage, deep venous thrombosis, pulmonary embolism, stroke, coma, heart attack, permanent paralysis and , as well as the potential need for eventual revision of the prosthetic. Surgeon: Arelis Back Control Manager: Emory Monge Anesthesia Type: General and Spinal Operative Notes Findings: Severe right knee osteoarthritis, adequate stability and good range of motion, adequate bone Closure Type: primary Specimen(s): none sent Prosthetic devices, grafts, tissues, transplants, or devices: Back and nephew shelbyney BCS 2 size 4 femur, size 3 tibia, +10 poly, 35 x 7-1/2 mm patella Estimated Blood Loss (mL): 250 Blood products transfused: none Tourniquet time (min): 94 Procedure in detail: The patient was seen in the pre-operative area, where the patient identified the right knee as the operative site and this was marked with my initials. The patient received pre-operative antibiotics, and was taken to the operating room and placed on the operative table in the supine position. After satisfactory anesthesia, a access services representative out was performed. The right leg was encircled with a tourniquet about the proximal thigh, and the leg was prepared from the toes to the tourniquet with ChloroPrep in the usual fashion and draped through sterile drapes. The leg was elevated and exsanguinated with Eschmark bandage and the tourniquet inflated to [250] mmHg pressure. A PA was used during the procedure and was essential for intraoperative retraction and safe implantation of the components. The knee was approached through an approximately 18 cm incision centered over the patella and carried into the knee through a medial parapatellar arthrotomy. A portion of the medial and lateral meniscus was resected. Soft tissue was carefully mobilized around the patella the patella was measured with a caliper. Bone was resected from the patella and the patellar height was reconstituted with up an appropriate sized patellar component. A cover was then placed on the patella. A small amount of additional medial and lateral meniscus was resected. An 18 cm incision was made over the medial aspect of the patellar tendon. Dissection was carried out through skin and subcutaneous tissues. A parapatellar arthrotomy was then performed. The anterior aspect of the meniscus and fat pad were then resected. Osteophytes were carefully resected. To Cori pins were placed in the femur and in the tibia for robotic assisted navigation. The patient was then placed through a range of motion and measurements were taken for stressed and non stressed range of motion of the knee with the plan for robotic assisted resection of the distal femur and proximal tibia. The femur and the tibia were carefully mapped. Plan was taken and carefully improved. There was good balance throughout range of motion with about 1 mm of gap throughout range of motion. A bur was used to resect the femoral bone for the distal femoral cut and the bur was used to establish holes for the tibial guide. The 5 in 1 cutting block was applied the rotation was carefully checked. Finishing cuts were made on the femur. There was no evidence of notching. The anterior, posterior and chamfer cuts were then made. The posterior osteophytes and soft tissues were then removed. The posterior capsule was injected with part of a mixture of 60 ml 0.25% Marcaine mixed with 266 mg Exparel was injected throughout the procedure for post operative pain control. The remainder of this mixture was injected into the capsule and subcutaneous tissues during cement curing. The tibial jig was placed on the tibia and was navigated using the Cori robotic assisted system for alignment. The patient was placed in full extension and any residual meniscus or residual bone sirs spurs were carefully resected. It looked like an adequate extension gap. The tibial size was checked. Marcaine was injected. Tibial and femoral components were then placed and the knee placed through a range of motion. Range of motion was [0-130], with good stability throughout the range. There was excellent balance achieved and excellent alignment achieved using robotic navigation. The trials were then removed, and the tibia was finished. The bone was prepared with pulsatile lavage, and dried with a sponge. Cement was applied and the final prosthetics placed. Excess cement was removed during and after cement curing. A brief Betadine soak was performed. After confirming there was no extruded cement posteriorly, the final tibial insert was placed. The knee was copiously irrigated and the tourniquet deflated. Hemostasis was obtained with the Bovie cautery. The capsule was closed with interrupted nonabsorbable suture. The subcutaneous layer was closed with barbed sutures, and the skin with a running 3-0 V-Lock suture and Surgical glue. An Aquacel Ag dressing was applied and the patient was taken to recovery having tolerated the procedure well. Complications: none Post-operative Condition: stable Disposition: observation Plan for aftercare: The patient will be maintained on a standard total knee replacement protocol with weight bearing as tolerated. The patient will receive aspirin and sequential compression devices for DVT prophylaxis. The patient will be discharged home when safe for the home environment.
--- NOTE | 2023-03-09 08:00 | DI.RAD.S_ITS ---
PROCEDURE: XR KNEE RT 1TO2V INDICATIONS: right TKA TECHNIQUE: 2 view(s) of the knee acquired. COMPARISON: [facility] [place], CR, XR KNEE ARTHRITIC SERIES BI, 11/11/2022, 8:25. [facility], [place], XR KNEE LT 1TO2V, 01/09/2020, 10:41. FINDINGS: Bones: Patient is status post knee joint arthroplasty. Hardware components are in expected positions. Visualized bony structures are intact. Soft tissues: Overlying postoperative changes are noted. IMPRESSION: Expected post-operative appearance of a knee arthroplasty. Dictated by: Cash Thompson M.D. on 03/09/2023 at 13:11 Approved by: Cash Thompson M.D. on 03/09/2023 at 13:11
[2023-03-09] MEDS: CEFAZOLIN 2 GM/100 ML PREMIX 100 ML IV ×3 (08:06→23:46)
--- NOTE | 2023-03-09 08:24 | SUR.OPER ---
Supine on padded OR bed, head on pillow, arms secured on padded arm boards at <90 degrees abduction, legs uncrossed, safety belt at thigh, tape over blanket over lower LEFT LEG.
[2023-03-09] MEDS: BUPIVACAINE LIPOSOME 266 MG/20 ML VIAL INJ (08:57)
[2023-03-09] MEDS: BUPIVACAINE 0.25% (PF) 60 ML, EPINEPHrine 0.3 MG INJ (08:58)
[2023-03-09] MEDS: TRANEXAMIC ACID 1,000 MG VIAL 2000 MG INJ (09:02)
[2023-03-09] MEDS: hydrOXYzine 50 MG/ML INJ 25 MG IM (10:55)
[2023-03-09] MEDS: ONDANSETRON 4 MG/2 ML INJ IV (10:56)
[2023-03-09] MEDS: OXYCODONE IR 5 MG TABLET PO (10:56)
[2023-03-09] MEDS: LACTATED RINGERS 1,000 ML 100 ML IV ×2 (12:13→20:28)
[2023-03-09] MEDS: ACETAMINOPHEN 325 MG TABLET 650 MG PO ×3 (12:14→23:45)
[2023-03-09] MEDS: IBUPROFEN 400 MG TABLET PO ×4 (12:14→23:46)
--- NOTE | 2023-03-09 13:30 | PT.IIE ---
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 1 step to enter 15 steps L rail ascending to get to 2nd floor bedroom Home Environment High Toilet,Walk in Shower Home Equipment Front Wheel Walker,Straight Cane,Raised Toilet Seat Without Armrests,Shower Seat with Backrest,Hand Held Shower ,Grab Bars Near Toilet,Grab Bars In Shower M2 PT-IP Current Condition Start: 03/09/23 14:39 Freq: NEEDED Status: Active Protocol: Document 03/09/23 13:30 AB (Rec: 03/09/23 14:52 AB [id number]) Physical Therapy Current Condition Current Condition Evaluation Date 03/09/23 Treatment Diagnosis s/p R TKA; difficulty in walking Onset Date 03/09/23 M3 PT-IP Subjective Start: 03/09/23 14:39 Freq: NEEDED Status: Active Protocol: Document 03/09/23 13:30 AB (Rec: 03/09/23 14:52 AB [id number]) Subjective Physical Therapy Visit Type Type Initial Evaluation Visit Start Time 13:30 Visit Stop Time 14:35 Number of STONE GRADER Visits 0 Physical Therapy Visit Comments Patient Comments requesting to use the toilet Therapy Pain Assessment Pain When Pain Assessed At Rest Pain Present Pain Present Pain Reported Location knee Intensity 9 Scale Used Numeric (0 - 10) Pain Management Techniques Apply Cold,Distraction, Modification of Treatment,Re- positioning,Timing of Activity with Medications M4 PT-IP Mobility and Gait Start: 03/09/23 14:39 Freq: NEEDED Status: Active Protocol: Document 03/09/23 13:30 AB (Rec: 03/09/23 14:52 AB [id number]) PT-Bed Mobility Assessment Supine to Sit Supine to Sit Maximum Assistance Sit to Supine Sit to Supine Standby Assistance PT-Transfer Assessment Sit to and From Stand Sit to and from Stand Minimal Assistance,Moderate Assistance,1 Person Assistance ,Use of Upper Extremities Equipment Transfer Assistive Device Gait Belt,Front Wheeled Walker Orthotic/Prosthetic Devices or Brace: No Transfers Transfer Destination Bedside Commode Transfer Technique Stand Step Pivot Transfer Ability Level of Assist Minimal Assistance,Moderate Assistance,1 Person Assistance ,Use of Upper Extremities Comments Mobility Comments pt supine in bed. spouse in room. pt requesting to use the toilet. BP: 144/78. obtained PLOF and home set up from spouse and pt. pt completed supine to sit max A and max cues. c/o increase R knee pain 10/18. pt initially requiring min A for sitting balance but able to sit SBA after repositioning. pt completed sit to stand mod A and cues for R quads activation. completed step transfer to bedside commode using FWW mod A and cues. pt completed sit to stand from the bedside commode min to mod A and was able to maintain standing min A using FWW for support while nurse assisted pt with hygiene care and brief management. pt refused further ambulation and wants to go back to bed. pt completed step transfer back to bed using FWW min to mod A and was able to take a few steps towards HOB min to mod a . pt completed sit to supine SBA. positioned pt in bed. call light and table placed within reach. Caregiver training set up for tomorrow at 9 am. spouse will be staying with pt in room. Gait Assessment Comments Gait Comments able to take a few steps towards HOB using fWW min to mod A PT-Balance Assessment Sitting Balance and Reactions Static Sitting Balance Ability Good Dynamic Sitting Balance Ability Fair Standing Balance and Reactions Static Standing Balance Ability Fair Dynamic Standing Balance Ability Fair Device Used FWW M5 PT-IP Objective Assessments Start: 03/09/23 14:39 Freq: NEEDED Status: Active Protocol: Document 03/09/23 13:30 AB (Rec: 03/09/23 14:52 AB [id number]) Orientation Orientation/Cognition Level of Alertness Alert Orientation Name,Place,Situation Language Function Ability No Deficits Noted Safety Awareness Decreased Safety Awareness Memory Description No Deficits Noted Gross Range of Motion Lower Extremity ROM Assessment Right Impaired Impairments R knee flexion: ~ 70 deg with c/o increase pain limiting mobility Strength Lower Extremity Strength Assessment Right Impaired Hip 3+/5 Knee 3+/5 Sensation Assessment Sensation Sensation Description Numbness Comments Sensation Comments B feet neuropathy stated that her R knee is still numb but able to feel her thighs Muscle Tone Muscle Tone WNL Yes M6 PT-IP Treatment Start: 03/09/23 14:39 Freq: NEEDED Status: Active Protocol: Document 03/09/23 13:30 AB (Rec: 03/09/23 14:52 AB [id number]) Physical Therapy Treatment Exercises Exercises Heel Slides Education Education Provided Precautions,Weight Bearing Status,Post-Op Packet,Safety M7 PT-IP Assessment and Plan Start: 03/09/23 14:39 Freq: NEEDED Status: Active Protocol: Document 03/09/23 13:30 AB (Rec: 03/09/23 14:52 [id number]) PT Summary Assessment and Plan Potential Rehabilitation Potential Fair Status of Condition at Evaluation Evolving Summary Impairments Pain,ROM,Strength,Balance, Coordination,Sensation,Tone, Cognition,Bed Mobility, Transfers,Gait,Activity Tolerance Assessment Summary pt is a 77 y/o F s/p R TKA POD0. pt with c/o increase pain of 9/10 on R knee. pt requiring max A with supine to sit and min to mod A for step transfer using FWW. pt refused ambulation today due to c/o pain but was able to take a few steps towards HOB using FWW for positioning min to mod A. Caregiver training set up for tomorrow at 9 am. will continue to assess progress. Goals Bed Mobility Goal Independent Transfer Goal Independent,Front Wheeled Walker Gait Goal Independent,Front Wheel Walker Gait Distance 200 Other Goals improve trasnfers and ambulation using LRAD 300 ft SBA up/down 1 step using FWW SBA up/down 15 steps L rail ascending SBA Days to Meet Goals 10 Frequency of Treatment Frequency Of Treatment Twice a Day Treatment Plan Physical Therapy Treatment Plan Bed Mobility Training,Transfer Training,Gait Training, Therapeutic Exercise,Balance Retraining,Post Op Education, Discharge Planning,Hot or Cold Pack,Neuromuscular Re-ed, Coordination Retraining,Manual Therapy Weight Bearing Status Weight Bearing Status Weight Bear as Tolerated Allowed Weight Bearing Amount (enter % RLE WBAT or #) (%) Recommendations To Nursing Amount of Assist Needed 1 Person Assist Discharge Recommendations PT Discharge Recommendations Home with Assistance, Outpatient PT Transportation Needs at Discharge Private Vehicle
--- NOTE | 2023-03-09 15:38 | OT.IPNOTE ---
Pt states able to get up with PT earlier but wanting to wait to see OT tomorrow. Able to talk to pt about OT needs and suggestions briefly. NO charge and to check on the pt in the morning.
[2023-03-09] MEDS: GABAPENTIN 100 MG CAPSULE PO (20:25)
[2023-03-09] MEDS: ASPIRIN EC 81 MG TABLET PO (20:25)
[2023-03-10] MEDS: IBUPROFEN 400 MG TABLET PO ×2 (02:30→08:07)
[2023-03-10] MEDS: ACETAMINOPHEN 325 MG TABLET 650 MG PO (05:14)
[2023-03-10 05:40] LABS: Hematocrit 37.5 % (36-46); Hemoglobin 12.5 g/dL (12.0-16.0)
[2023-03-10 08:05] VITALS: BP 125/62; PULSE 75; RESP 16; TEMP 36.4; O2SAT 99
[2023-03-10] MEDS: ASPIRIN EC 81 MG TABLET PO (08:07)
[2023-03-10] MEDS: DOCUSATE 100 MG CAPSULE PO (08:07)
[2023-03-10 08:08] VITALS: BP 125/62; PULSE 75
[2023-03-10] MEDS: lisinopriL 5 MG TABLET PO (08:08)
[2023-03-10] MEDS: AMLODIPINE 5 MG TABLET PO (08:08)
--- NOTE | 2023-03-10 08:19 | PM.DS.1 ---
History of Present Illness History of Present Illness Date Patient Seen: 03/10/23 Time Patient Seen: 08:00 Chief complaint: OPB Narrative: The patient has had progressively worsening right knee pain with radiographic changes consistent with arthritis. Non-operative management has failed and the patient has requested total knee replacement. The risks, benefits and alternatives to surgery were discussed with the patient prior to proceeding. Risks discussed included, but were not limited to, failure to relieve pain, stiffness, infection, nerve damage, deep venous thrombosis, pulmonary embolism, stroke, coma, heart attack, permanent paralysis and , as well as the potential need for eventual revision of the prosthetic. Operative Notes Findings: Severe right knee osteoarthritis, adequate stability and good range of motion, adequate bone Closure Type: primary Specimen(s): none sent Prosthetic devices, grafts, tissues, transplants, or devices: Back and nephew shelbyney BCS 2 size 4 femur, size 3 tibia, +10 poly, 35 x 7-1/2 mm patella Estimated Blood Loss (mL): 250 Blood products transfused: none Tourniquet time (min): 94 Today patient is feeling well this morning. She felt the Taco wrap was too tight on her right leg. Once Taco wrap was removed pre provided relief. She would like to receive a compression stocking. She tried to find 1 before surgery but all sizes that fit her well so it out. Pain is controlled with oral medications. Discharge Providers Provider Discharge Date: 03/10/23 Primary care physician: Coleen Garrison PA-C Consults: 03/09/23 06:00 Consult to Anesthesiology Routine Comment: Consulting Provider: Anesthesiologist Reason for consultation: Regional block for post operative pain control 03/09/23 11:30 Consult to Discharge Planning Routine Comment: Consult to Occupational Therapy Evaluate & Treat Comment: Physician Instructions: Evaluate and treat Consult to Physical Therapy Evaluate & Treat Comment: Physician Instructions: postop TKA protocol Discharge provider: Emory Monge PA-C Summary Status at Discharge Cognitive/behavioral status at discharge: oriented Functional status at discharge: uses cane/walker Time Spent with Patient Time spent: Less than 30 minutes Exam Vital Signs (past 8 hours): - 03/10/23 08:05 03/10/23 08:08 Temperature 97.6 F Pulse Rate 75 75 Respiratory Rate 16 Blood Pressure 125/62 125/62 Pulse Oximetry 99 Oxygen Delivery Method Room Air Oxygen Flow Rate 0 Narrative Exam Narrative: 1+ edema along the right lower leg. No ecchymosis noted. Dressing appears to be maintained and dry. No discharge noted. Sensation intact throughout the right lower extremity. Range of motion 0-60 degrees at the right knee. Able to dorsiflex and plantar flex at the right ankle against resistance. 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 Plan of Treatment: Patient will work with therapy to determine if she is able to be discharged home today. The patient will be maintained on a standard total knee replacement protocol with weight bearing as tolerated. The patient will receive aspirin and sequential compression devices for DVT prophylaxis. The patient will be discharged home when safe for the home environment. Post operative oxycodone 5mg has already been prescribed. May also take acetaminophen 650 mg and ibuprofen 400 mg every 4 hours for pain relief. Start physical therapy in 3-7 days. Discharge Plan Discharge Plan Patient Disposition: Home Provider Discharge Comment: Discharge once cleared by PT Discharge orders & Medications Discharge Orders: Discharge (Order); Ordered 03/10/23 Ordered By: Emory Monge Prescriptions: Continued amlodipine 5 mg Tablet 5 mg PO DAILY lisinopril 5 mg Tablet 5 mg PO DAILY Qty: 0 ibuprofen [Motrin IB] 200 mg Capsule 400 mg PO DAILY PRN (Reason: Pain) calcitonin (salmon) 200 unit/actuation [place],Non-Aerosol 1 spray INTRANASAL (ALT) DAILY gabapentin 100 mg capsule 100 mg PO BEDTIME Follow up/Referrals: Coleen Garrison PA-C [Primary Care Provider] - Diet/Activity/Treatments Diet: Diet as Tolerated Cold/Heat Therapy: Ice over surgical site as needed for pain. Skin/Wound/Dressing Care Report to your healthcare provider any signs of infection, such as:: chills, fever, night sweats, unusual drainage and unusual redness Dressing: May shower. Keep dressing as dry as possible. If dressing becomes wet or dirty, remove and replace with clean, dry gauze. Visit Report/Discharge Packet Instructions: DI for Knee Replacement Stand Alone Forms: Patient Portal/API, Surgery Discharge Discharge Data Primary Care Provider: Coleen Garrison Attending Provider: Arelis Back Quality VTE Deep Vein Thrombosis/Pulmonary Embolism Present on Admission: No
--- NOTE | 2023-03-10 08:58 | OT.IP.EVAL ---
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) Neuropathy Surgical History (Last Updated 02/15/23 @ 10:06 by Antonietta Adler RN) History of surgery Hx of bilateral cataract extraction (2020) Hx of colonoscopy (07/13/22) Hx of dilation and curettage 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 Social History Household Members spouse Living Arrangements House Number of Floors (Floors) Two Floors Number of Stairs To Enter/Railing? 1 step to enter 15 steps L rail ascending to get to 2nd floor bedroom Home Environment High Toilet,Walk in Shower Home Equipment Front Wheel Walker,Straight Cane,Raised Toilet Seat Without Armrests,Shower Seat with Backrest,Hand Held Shower ,Grab Bars Near Toilet,Grab Bars In Shower M2 OT-IP Current Condition Start: 03/10/23 09:00 Freq: Status: Active Protocol: Document 03/10/23 09:00 [facility] (Rec: 03/10/23 09:11 [facility] [id number]) Occupational Therapy Current Condition Current Condition Evaluation Date 03/10/23 Treatment Diagnosis S/P R TKA Diagnosis Onset Date 03/09/23 M3 OT- IP Subjective and Pain Start: 03/10/23 09:00 Freq: Status: Active Protocol: Document 03/10/23 09:00 [facility] (Rec: 03/10/23 09:11 [facility] [id number]) OT- Subjective Occupational Therapy Visit Type Type Initial Evaluation Visit Start Time 08:20 Visit Stop Time 08:58 Occupational Therapy Visit Comments Patient Comments Pt agreed to shower but then decided to just sponge off and get dressed. Pt's and daughter present for the end of the session. Patient/Caregiver Goals To go home. OT Pain Assessment Pain When Pain Assessed During Mobility Pain Present Pain Present Pain Reported Location knee Intensity 7 M4 OT- IP ADL's Start: 03/10/23 09:00 Freq: Status: Active Protocol: Document 03/10/23 09:00 [facility] (Rec: 03/10/23 09:11 [facility] [id number]) OT LKQ-Aqjs-Edzlubr General Evaluation Self-Feeding Ability Independent OT ADL-Grooming General Evaluation Grooming Ability Independent OT ADL-Oral Care General Eval Oral Care Ability Independent OT ADL-Dressing General Eval Lower Body Dressing Ability Minimal Assistance Comments OT Dressing Comments Assist to help tie her shoes and get the her heel into the shoe. Educated pt to lori RLE first and take out last. OT ADL-Toileting General Evaluation Toileting Ability Standby Assistance Comments OT Toileting Comments Set-up assist. Educated pt to taper drinking water at night.Educated use of wipe for ease of hygiene needs. OT ADL-Bathing Bathing Type Bathing Type Sponge Bath General Evaluation Bathing Ability Minimal Assistance Comments OT Bathing Comments Pt able to sponge off while seated on the toilet. Assist for her back. M5 OT- IP IADL's Start: 03/10/23 09:00 Freq: Status: Active Protocol: Document 03/10/23 09:00 [facility] (Rec: 03/10/23 09:11 [facility] [id number]) OT-Instrumental Activities of Daily Living Deficits IADL Deficits Identified Deficits Home Safety Awareness Awareness of Need for Assistance at Home Good Awareness Ability to Problem Solve Emergency Able to Problem Solve Situations Medication Management Medication Management No Deficits Identified Meal Preparation Meal Preparation Caregiver Provides Assist Design Tech Design Tech Caregiver Provides Assist M6 OT- IP Functional Cognition Start: 03/10/23 09:00 Freq: Status: Active Protocol: Document 03/10/23 09:00 [facility] (Rec: 03/10/23 09:11 [facility] [id number]) Cognitive Factors Limiting Selfcare Function Cognitive Ability Level of Alertness Alert Patient Orientation Name,Age,Birthday,Month,Date, Year,Day of Week,Place, Situation Attention Span Ability Capable of Focused Attention, Capable of Sustained Attention Ability to Follow Commands Able to Follow Multi-Step Commands Cognitive Comments Cognitive Assessment Comments Pt intact. OT- Vision and Hearing OT- Hearing Assessment OT- Hearing Assessment Use of Hearing Aids OT- Vision Assessment Visual Acuity Glasses All The Time M7 OT- IP Mobility and Balance Start: 03/10/23 09:00 Freq: Status: Active Protocol: Document 03/10/23 09:00 [facility] (Rec: 03/10/23 09:11 [facility] [id number]) OT- Bed Mobility Assessment Supine to Sit Supine to Sit Assist Standby Assistance OT-Transfer Assessment Sit to and From Stand Sit to and from Stand Contact Guard Assistance, Moderate Assistance Transfers Transfer Ability Standby Assistance Technique Transfer Destination Bed,Chair,Toilet Transfer Technique Stand Step Pivot Devices Transfer Assistive Devices Gait Belt,Front Wheeled Walker Comments Mobility Comments Pt needing MODA to stand from lower surfaces. Once up on her feet SBA with FWW. OT- Balance Assessment Sitting Balance and Reactions Static Sitting Balance Ability Normal Dynamic Sitting Balance Ability Normal Standing Balance and Reactions Static Standing Balance Ability Good Dynamic Standing Balance Ability Fair M8 OT- IP Objective Assessments Start: 03/10/23 09:00 Freq: Status: Active Protocol: Document 03/10/23 09:00 [facility] (Rec: 03/10/23 09:11 [facility] [id number]) OT Gross Range of Motion Upper Extremity Range of Motion ROM Impairments WFL for ADL needs. OT Strength Upper Extremity Strength Assessment Within Functional Limits M9 OT- IP Assessment and Plan Start: 03/10/23 09:00 Freq: Status: Active Protocol: Document 03/10/23 09:00 [facility] (Rec: 03/10/23 09:11 [facility] [id number]) OT Summary Assessment and Plan Potential Rehabilitation Potential Excellent Analytic Complexity at Evaluation Low Summary OT Impairments Pain,Balance,Functional Mobility,Dressing,Toileting, Bathing,Toilet Transfers, Shower Transfers Progress Towards Goals Progressing Toward Goals Assessment Summary Pt low complexity and main barriers are pain, needing assist to get up from lower surfaces and will need assist with shoes and showering needs at this time. Suggested pt get a BSC , but pt feels the toilet is close enough to use at night. Pt's and daughter to assist her at home and pt to go to outpt PT. Goals Dressing Goal Independent Toileting Goal Independent Bathing Goal Standby Assistance Toilet Transfer Goal Independent Shower Transfer Goal Standby Assistance Days to Meet Goals 5 Frequency of Treatment Frequency Of Treatment Once a Day Treatment Plan OT Treatment Plan ADL Training,Functional Mobility,Patient/Family Education,Discharge Planning Discharge Recommendations OT Discharge Recommendations Home with Assistance, Outpatient PT Transportation Needs at Discharge Private Vehicle
--- NOTE | 2023-03-10 09:00 | PT.IPTN ---
Current Diagnoses Unilateral primary osteoarthritis, right knee (03/09/23) Surgery Performed Operation Date: 03/09/23 07:45 Actual Procedures p Total Knee Arthroplasty - Robot(Right) - Arelis Back MD Physical Therapy Treatment Note M2 PT-IP Current Condition Start: 03/09/23 14:39 Freq: NEEDED Status: Discharge Protocol: Document 03/09/23 13:30 AB (Rec: 03/09/23 14:52 AB [id number]) Physical Therapy Current Condition Current Condition Evaluation Date 03/09/23 Treatment Diagnosis s/p R TKA; difficulty in walking Onset Date 03/09/23 M3 PT-IP Subjective Start: 03/09/23 14:39 Freq: NEEDED Status: Discharge Protocol: Document 03/10/23 09:00 AB (Rec: 03/10/23 13:06 AB [id number]) Subjective Physical Therapy Visit Type Type Treatment Note Visit Start Time 09:00 Visit Stop Time 09:48 Number of [employer] ENFORCEMENT OFFICER Visits 48 Physical Therapy Visit Comments Patient Comments agreeable to do PT Therapy Pain Assessment Pain When Pain Assessed During Mobility Pain Present Pain Present Pain Reported Location knee Intensity 6 Scale Used Numeric (0 - 10) Pain Management Techniques Distraction,Modification of Treatment,Re-positioning, Timing of Activity with Medications M4 PT-IP Mobility and Gait Start: 03/09/23 14:39 Freq: NEEDED Status: Discharge Protocol: Document 03/10/23 09:00 AB (Rec: 03/10/23 13:06 AB [id number]) PT-Bed Mobility Assessment Supine to Sit Supine to Sit Standby Assistance Sit to Supine Sit to Supine Standby Assistance PT-Transfer Assessment Sit to and From Stand Sit to and from Stand Contact Guard Assistance,1 Person Assistance,Use of Upper Extremities Equipment Transfer Assistive Device Gait Belt,Front Wheeled Walker Orthotic/Prosthetic Devices or Brace: No Transfers Transfer Destination Bed,Chair Transfer Technique ambulated Transfer Ability Level of Assist Contact Guard Assistance,1 Person Assistance,Use of Upper Extremities Comments Mobility Comments pt sitting on the chair in room with daughter and spouse. caregiver training conducted . spouse was able to put safety belt on pt. daughter took over to do caregiver training. educated daughter on how to use safety belt and how to assist pt. pt has a high bed at home and steps up on a stool to be able to reach the bed. pt completed sit to stand from the chair CGA with daughter assisting. pt ambulated towards the bed and step up on step stool using FWW for support with daughter assisting CGA. pt completed bed mobility SBA. pt agreed to do stairs. sit to stand from the EOB CGA and ambulated to the w/c ~ 20 ft CGA using fWW. stair climbing training. educated pt and family regarding stair climbing techniques. pt completed sit to stand from the w/c with daughter assisting and pt completed up/down platform step using FWW for support min A with daughter assisting . pt then completed up/down steps using L rail + hurrycane min A with daughter assisting . pt completed x 2. pt assisted back to her room. pt requested to use the toilet. Daughter assisted pt to the toilet using FWW. Pt and family without further concerns. informed nurse that pt is with family and is using the toilet. Gait Assessment Gait Gait Assistance Required: Contact Guard Assist,1 Person Assist Distance (Feet) 20 Able to Maintain Weight Bearing Status Yes During Gait Assistive Devices Assistive Device Gait Belt,Front Wheeled Walker Orthotic/Prosthetic Devices or Brace: No Gait Deviations General Gait Pattern Antalgic,Decreased Stride Length,Decreased Feet Clearance,Step-to Gait Factors Limiting Gait Function Factors Limiting Gait Function Decreased Activity Tolerance, Decreased Strength,Difficulty Following Directions,Limited Range of Motion,Pain,Poor Balance,Poor Safety Awareness Stair Climbing Assessment Evaluation Level of Assist On Stairs Minimal Assistance,1 Person Assistance Devices Stair Climbing Assistive Devices Tripod Cane/Hurry Cane,Left Railing Technique/Endurance Stair Climbing Direction Ascend and Descend Stair Climbing Technique Step to Step Number of Steps Climbed 3 Stair Climbing Set # Repetitions (reps) 2 M5 PT-IP Objective Assessments Start: 03/09/23 14:39 Freq: NEEDED Status: Discharge Protocol: Document 03/09/23 13:30 AB (Rec: 03/09/23 14:52 AB [id number]) Orientation Orientation/Cognition Level of Alertness Alert Orientation Name,Place,Situation Language Function Ability No Deficits Noted Safety Awareness Decreased Safety Awareness Memory Description No Deficits Noted Gross Range of Motion Lower Extremity ROM Assessment Right Impaired Impairments R knee flexion: ~ 70 deg with c/o increase pain limiting mobility Strength Lower Extremity Strength Assessment Right Impaired Hip 3+/5 Knee 3+/5 Sensation Assessment Sensation Sensation Description Numbness Comments Sensation Comments B feet neuropathy stated that her R knee is still numb but able to feel her thighs Muscle Tone Muscle Tone WNL Yes M6 PT-IP Treatment Start: 03/09/23 14:39 Freq: NEEDED Status: Discharge Protocol: Document 03/10/23 09:00 AB (Rec: 03/10/23 13:06 [id number]) Physical Therapy Treatment Education Education Provided Precautions,Weight Bearing Status,Safety M7 PT-IP Assessment and Plan Start: 03/09/23 14:39 Freq: NEEDED Status: Discharge Protocol: Document 03/10/23 09:00 AB (Rec: 03/10/23 13:06 [id number]) PT Summary Assessment and Plan Potential Rehabilitation Potential Good Summary Impairments Pain,ROM,Strength,Balance, Coordination,Sensation,Tone, Cognition,Bed Mobility, Transfers,Gait,Activity Tolerance Progress Towards Goals Slow Progress due to Pain Assessment Summary caregiver training conducted and family was able to safely assist pt with mobility. pt may go home when medically stable. Goals Bed Mobility Goal Independent Transfer Goal Independent,Front Wheeled Walker Gait Goal Independent,Front Wheel Walker Gait Distance 200 Other Goals improve trasnfers and ambulation using LRAD 300 ft SBA up/down 1 step using FWW SBA up/down 15 steps L rail ascending SBA Days to Meet Goals 10 Frequency of Treatment Frequency Of Treatment Twice a Day Treatment Plan Physical Therapy Treatment Plan Bed Mobility Training,Transfer Training,Gait Training, Therapeutic Exercise,Balance Retraining,Post Op Education, Discharge Planning,Hot or Cold Pack,Neuromuscular Re-ed, Coordination Retraining,Manual Therapy Weight Bearing Status Weight Bearing Status Weight Bear as Tolerated Allowed Weight Bearing Amount (enter % RLE WBAT or #) (%) Recommendations To Nursing Amount of Assist Needed 1 Person Assist Discharge Recommendations PT Discharge Recommendations Home with Assistance, Outpatient PT Transportation Needs at Discharge Private Vehicle
[2023-03-10] MEDS: OXYCODONE IR 5 MG TABLET PO (09:53)
--- NOTE | 2023-03-10 11:16 | CM.DANOTE ---
DCP Brief Assessment Note Pt is a 77yo F here following total right knee replacement with Dr. Back on 03.09.23. PCP Coleen Garrison Payer Medicare and [employer] for [facility] ABAP DEVELOPER reviewed EMR. Per ortho PA/OT/PT, cleared for dc home. Per chart review, pt has spouse Elliot ([phone]) at home with her and adult dtr lives close by as another additional support in the home. Per PT/OT note, pt has shower chair, elevated toilet, cane, and walker due to previous surgeries but normally ambulates indep at baseline. No obvious CM needs identified from chart review. Per ortho PA dc summary, Plan: dc today with spouse and dtr support in POV. No CM needs identified at this time. CM team will continue to follow as needed. ANAHY Aden Discharge Planning/Care Management CM Discharge Assessment Start: 03/10/23 11:14 Freq: Status: Active Protocol: Document 03/10/23 11:14 (Rec: 03/10/23 11:16 [id number]) Discharge Planning Assessment Assigned Recreation Leader ANAHY Gold DPOA/Assigned Designee Name Elliot, spouse Contact Information [phone] Advance Directives? Yes Advance Directives on File No History Provided By Medical Record Prior Living Arrangements House Household Members spouse Independent with ADL's Yes Is patient alert and oriented? Yes DME Already Rented / Owned Bath Bench,Elevated Toilet Seat,FWW / Walker,Cane Patient/Family Preference OP PT Therapy Barriers to Discharge No Discharge Plan Home Transportation Arrangement Spouse to provide transport. Referrals Initiated None needed Whiteboard Updated in Patient Room with No name and ext. # of Recreation Leader Review Status In Process Next Review Type Continued Stay Review Pre-Anesthesia Assessment Start: 02/15/23 09:31 Freq: Status: Active Protocol: Document 02/15/23 09:31 CAB (Rec: 02/15/23 10:26 CAB [id number]) Pre-Anesthesia Assessment Preferred Name Bianka Patient Information Reviewed Via Phone Assessment Assessment Completed With Patient Diagnostic Results BMP/CMP,CBC,EKG Comment Labs/EKG @ 01/26/23 Primary Care Provider Coleen Garrison Seen Specialist in Last 12 Months Yes Specialist Seen Orthopedist,Other Comment GI, Neurologist Primary Language Citizen [place] Preferred Language [place] Broke Worker Required No Height 165.1 cm Weight 65.771 kg Body Mass Index (BMI) 24.1 Hearing Ability Normal Visual Assist Glasses Dentition Type Teeth, Natural Present Barriers to Learning None Hx Anesthesia Reactions No Hx Family Anesthesia Reaction Yes: Mom-Hallucinations Hx Malignant Hyperthermia No Hx Blood Transfusions No Hx Blood Transfusion Reaction No Anesthesia Review Requested No Director Experimental Medicine No alcohol intake current alcohol intake frequency a few times a week Smoking Status Never smoker Substance Use Type does not use Pain Present Pain Reported Musculoskeletal Symptoms Abnormal Gait,Difficulty Walking,Joint Pain History of Falling (Recent or History of No ) Patient is completely paralyzed or No completely immobile Mental Status Oriented to own ability Is patient on oxygen? No Does patient have PUENTES/SOB No Hx Sleep Apnea No CPAP/BIPAP use not prescribed Currently Taking a Beta Judi No Can You Climb a Flight of Stairs Without Yes SOB Hx Chest Pain No Hx SOB No Hx Syncope or Dizziness No Anti-Coagulant Therapy No Has a Robotic Machine Tender Production No Cardiac Testing No Hx Pacemaker/ICD No Pacemaker Rep Required? No Cardiac Clearance Received Not Applicable Diet Type At Home Regular Dysphagia No Gastrointestinal Symptoms None Bladder Pattern Frequency,Urgency Urinary Catheter Present No Hx Urinary Self Catheterization No Diabetes No HgbA1C 5.1 Date 01/26/23 Patient No Lactating No Presence of External or Internal Medical Yes: Left knee prosthesis Devices Received a COVID vaccine? Yes Received all doses? Yes Marital Status Lives With spouse Current Living Arrangements House Number of Floors (Floors) Two Floors Support System Child/Children,Spouse Does the Patient Have Assistance After Yes Surgery Patient Discharge Plan Description Return Home Comment Pt advised overnight length of stay per surgeon Feels Safe in Current Environment Yes Been Physically Hurt or Threatened By a No Person in Current Environment Do you have thoughts of harming yourself None or others? Are you currently considering suicide? No Do you have a plan to hurt yourself or No Plan others? Do You Have Any Spiritual Beliefs That No May Affect Your HC Choices? Do You Have Any Cultural Practices That No May Affect Your HC Choices? Comment Tami Who Can We Speak to About Patient's Care Family, friends Identifying Code for Release of Patient Declines to issue Information Health Care Proxy/Next of Kin Elliot () Health Care Proxy Emergency Contact Name Elliot () Emergency Contact Advance Directives? Yes Advance Directives on File No Power of Store Consultant No Power of Store Consultant Name Elliot () Power of Store Consultant PAC Instructions Do not shave/clip surgical site,Durable medical equipment ,Medications to take/avoid, Nasal antibiotic,No ETOH/ petroleum product on skin DOS, NPO,Pre-surgical wash,Sensory aids,Sturdy shoes/comfortable clothes,Do not bring valuables and remove jewelry
--- NOTE | 2023-03-10 11:19 | PC.NURSE ---
Patient is A&Ox4, VSS, afebrile on RA. She is cleared by surgeon this a.m. for discharge home pending PT. She reports pain is well controlled this a.m with scheduled tylenol and ibuprofen. She reports after PT, pain level is elevated and requests PRN oxycodone 5 mg. Daughter and at bedside for caregiver training this a.m. and she is cleared from PT for discharge home. She verbalizes understanding of medications, site care, activity, s/sx of infection as well as follow up appointment information. She is escorted via w/ch by RN to private vehicle with for discharge home with daughter and today at 1015 a.m.
== END 2023-03-10 10:15 | disposition home or self-care (01) ==
LOC: OR 06:20 → AC 06:20
PROVIDERS: Family Provider Family Medicine; PCP Physician Assistant; Referring Provider Orthopaedic Surgery; Visit Provider Orthopaedic Surgery
PROC: 0SRC0JZ Replacement of Right Knee Joint with Synthetic Substitute, Open Approach (ICD-10-PCS; CPT 27447; principal; 2023-03-09 07:45)
DX: M17.11 Unilateral primary osteoarthritis, right knee (principal); I10 Essential (primary) hypertension; Z96.652 Presence of left artificial knee joint
CPT/HCPCS: 27447; 36415; 73560; 85014; 85018; 97162; 97165; 97530; 97535; C1776; C9290; J0171; J0690; J1100; J2405; J2704; J3010; J3410